=== PATIENT | female | born 1990 | race Caucasian/White ===

== ENCOUNTER 2024-06-16 09:16 | Emergency (ER) | payer OTHER, SELFPAY ==
[2024-06-16] VITALS (11 sets, daily range): BP systolic 121–171; BP diastolic 70–92; PULSE 69–128; RESP 14–17; TEMP 36.6; O2SAT 98–100
--- NOTE | ~2024-06-16 | XR_ITS ---
Clinical Indication: Chest pain, palpitations PA and lateral views of the chest: Comparison: None Findings: The lungs are clear, without evidence of focal consolidation or pleural effusion. Cardiome diastinal silhouette is within normal limits. Bones and soft tissues are unremarkable. Impression: Normal chest. Reviewed, dictated and finalized at [facility]. Impression: Normal chest.
--- NOTE | 2024-06-16 09:18 | ECG_ITS ---
Test Date: 2024-06-16 09:24:15 Measurements Intervals Archer Rate: 127 P: 63 VA: 146 QRS: 80 QRSD: 85 T: 37 QT: 297 QTc: 433 Interpretive Statements SINUS TACHYCARDIA WITH OCCASIONAL VENTRICULAR PREMATURE COMPLEXES MINIMAL Q WAVES- INFERIOR LEADS ABNORMAL ECG No previous ECG available for comparison Electronically Signed On 06-16-2024 09:45:30 CDT by Basilio Morrell D.O.
[2024-06-16] MEDS: Please add drug allergy info to patient profile. 1 EACH XX (09:32)
[2024-06-16] MEDS: SODIUM CHLORIDE 0.9% IV 1,000 ML 999 ML IV CONT (09:32)
[2024-06-16 09:38] LABS: Basophils Percent Auto 0.3 % (0.2-1.2); Eosinophils Absolute Auto 0.1 K/mm3 (0-0.3); Eosinophils Percent Auto 0.9 % (0-4.4); Hematocrit 41.7 % (37.0-47.0); Immature Granulocyte Absolute 0.02 K/mm3 (0.00-0.031); Immature Granulocyte Percent A 0.3 % (0-0.5); Lymphocytes Absolute Auto 1.35 K/mm3 (0.9-3.2); Lymphocytes Percent Auto 23.3 % (18.3-44.2); Mean Corpuscular HGB Conc 31.2 g/dl (32-36); Mean Corpuscular Hemoglobin 27.3 pg (26-34); Mean Corpuscular Volume 87.6 fl (80-100); Mean Platelet Volume 9.4 fl (7.4-10.4); Monocytes Absolute Auto 0.5 K/mm3 (0.1-0.6); Monocytes Percent Auto 8.8 % (2.6-8.5); Neutrophils Absolute Auto 3.9 K/mm3 (1.3-6.7); Neutrophils Percent Auto 66.4 % (45.5-73.1); Platelet Count Result 284 k/mm3 (150-375); Red Blood Count 4.76 M/mm3 (4.2-5.4); White Blood Count 5.8 K/mm3 (4.5-10.0)
[2024-06-16] MEDS: ASPIRIN 81 MG CHEWABLE TABLET 324 MG PO (09:39)
[2024-06-16 09:48] LABS: Alanine Aminotransferase 19 U/L (6-35); Albumin Level 4.6 g/dL (3.5-5.1); Alkaline Phosphatase 65 U/L (38-126); Anion Gap 11 mmol/L (4-12); Aspartate Amino Transferase 23 U/L (14-36); Bilirubin,Total 0.5 mg/dL (0.2-1.3); Blood Urea Nitrogen 12 mg/dL (7-17); Calcium 9.1 mg/dL (8.4-10.2); Carbon Dioxide 24 mmol/L (22-30); Chloride 105 mmol/L (98-107); Estimated CRCL calculation 125 ml/min; Estimated Glomerular Filt Rate > 60; Glucose 96 mg/dL (65-110); Lipase 98 U/L (23-300); Magnesium 2.2 mg/dL (1.6-2.3); Potassium 3.9 mmol/L (3.4-5.0); Sodium 140 mmol/L (137-145)
[2024-06-16 09:54] LABS: Prothrombin Time 13.1 Seconds (11.1-14.7)
[2024-06-16 09:55] LABS: Partial Thromboplastin Time 28.5 Seconds (22.3-36.8)
[2024-06-16 10:00] LABS: Troponin I < 0.012 ng/mL (0.000-0.034)
--- NOTE | 2024-06-16 10:14 | ED_ITS ---
HPI - Chest Pain General Chief Complaint: Chest Pain Stated Complaint: I think I'm having a heart attack. Time Seen by Provider: 06/16/24 09:21 History of Present Illness HPI narrative: Patient is a 34-year-old female who presents ER with concerns for chest discomfort and palpitations. Ongoing for 1 month. Intermittently feels her heart drop. She has tried stopping vitamins supplementation and then slowly reintroducing none. Seemed to have no effect. She feels flushed at times. No fevers or chills. She is concerned she may have a heart attack and . Chest discomfort is more the discomfort of feeling her heart is drop a beat as opposed to chest pressure or sharp stabbing pain. She does endorse some mild anxiety related to this. She has cut out caffeine without improvement. Related Data Allergies Allergy/AdvReac Type Severity Reaction Status Date / Time Penicillins AdvReac Unknown Unknown Verified 06/16/24 09:31 Review of Systems 2 Review of Systems: All systems reviewed & are unremarkable except as noted in HPI and below Constitutional: Constitutional: Reports no additional constitutional complaints Cardiovascular: Cardiovascular: Reports no additional cardiovascular complaints Respiratory: Respiratory: Reports no additional respiratory complaints Gastrointestinal: Gastrointestinal: Reports no additional gastrointestinal complaints Genitourinary: Genitourinary: Reports no additional female genitourinary complaints Musculoskeletal: Musculoskeletal: Reports no additional musculoskeletal complaints PMFSH Past Medical History Medical History (Updated 06/16/24 @ 11:28 by Trent Salas MD) Healthy female adult Surgical History Surgical History (Updated 06/16/24 @ 10:15 by Trent Salas MD) No pertinent past surgical history Exam 2 Narrative: GENERAL: Anxious-appearing, well-nourished, and in no acute distress. HEAD: Normocephalic, atraumatic. ENT: Mucous membranes moist. NECK: Supple. No carotid bruit CHEST: Clear to auscultation. No respiratory distress. HEART: Tachycardic regular. Normal peripheral pulses. ABDOMEN: Soft, nontender, nondistended. EXTREMITIES: Normal range of motion. No edema. SKIN: Warm, dry, no rash. Mild sunburn over the anterior chest and neck. NEURO: Alert and oriented x3. Course Course Emergency Course: Resting comfortably. TSH slightly low. Patient without tachycardia and is no longer anxious. Recommend follow-up with PCP for further treatment evaluation. Patient verbalized understanding. Vital Signs Vital signs: Vital Signs Temperature 97.9 F 06/16/24 09:19 Pulse Rate 128 H 06/16/24 09:19 Respiratory Rate 15 06/16/24 09:19 Blood Pressure 171/92 H 06/16/24 09:19 Pulse Oximetry 100 06/16/24 09:19 Oxygen Delivery Room Air 06/16/24 09:19 Temperature 97.9 F 06/16/24 09:19 Pulse Rate 73 06/16/24 11:17 Respiratory Rate 17 06/16/24 11:17 Blood Pressure 121/73 06/16/24 11:17 Pulse Oximetry 98 06/16/24 11:17 Oxygen Delivery Room Air 06/16/24 09:26 MDM - Chest Pain Lab Data 06/16/24 09:24 06/16/24 09:25 Labs: Lab Results 06/16/24 06/16/24 Range/Units 09:24 09:25 WBC 5.8 (4.5-10.0) K/mm3 RBC 4.76 (4.2-5.4) M/mm3 Hgb 13.0 (12.0-15.0) g/dL Hct 41.7 (37.0-47.0) % MCV 87.6 (80-100) fl MCH 27.3 (26-34) pg MCHC 31.2 L (32-36) g/dl RDW 14.0 (11.5-14.5) % Plt Count 284 (150-375) k/mm3 MPV 9.4 (7.4-10.4) fl Immature Gran % (Auto) 0.3 (0-0.5) % Neut % (Auto) 66.4 (45.5-73.1) % Lymph % (Auto) 23.3 (18.3-44.2) % Arroyo % (Auto) 8.8 H (2.6-8.5) % Eos % (Auto) 0.9 (0-4.4) % Baso % (Auto) 0.3 (0.2-1.2) % Lymph # (Auto) 1.35 (0.9-3.2) K/mm3 Arroyo # (Auto) 0.5 (0.1-0.6) K/mm3 Eos # (Auto) 0.1 (0-0.3) K/mm3 Baso # (Auto) 0.0 (0.0-0.1) K/mm3 Abs Immat Gran (auto) 0.02 (0.00-0.031) K/mm3 Absolute Neuts (auto) 3.9 (1.3-6.7) K/mm3 Absolute Nucleated RBC 0.000 (0.0-0.012) K/mm3 Nucleated RBC % 0.0 (0.0-0.2) % PT 13.1 (11.1-14.7) Seconds INR 1.0 APTT 28.5 (22.3-36.8) Seconds Sodium 140 (137-145) mmol/L Potassium 3.9 (3.4-5.0) mmol/L Chloride 105 (98-107) mmol/L Carbon Dioxide 24 (22-30) mmol/L Anion Gap 11 (4-12) mmol/L BUN 12 (7-17) mg/dL Creatinine 0.61 L (0.7-1.0) mg/dL Estim Creat Clear Calc 125 ml/min Estimated GFR > 60 (59 - ) Glucose 96 (65-110) mg/dL Calcium 9.1 (8.4-10.2) mg/dL Magnesium 2.2 (1.6-2.3) mg/dL Total Bilirubin 0.5 (0.2-1.3) mg/dL AST 23 (14-36) U/L ALT 19 (6-35) U/L Alkaline Phosphatase 65 (38-126) U/L Troponin I < 0.012 (0.000-0.034) ng/mL Total Protein 8.0 (6.3-8.2) g/dL Albumin 4.6 (3.5-5.1) g/dL Lipase 98 (23-300) U/L TSH (Reflex) 0.116 L (0.465-4.68) uIU/mL Free T4 Pending Imaging Data Radiologist's impression: ITS Impressions Chest X-Ray 06/16/24 10:02 Impression: Normal chest. ECG Data EKG #1: ECG completion date: 06/16/24 ECG completion time: 09:24 EKG Interpretation: tachycardia (127), sinus rhythm, PVCs, non-specific ST changes, normal QRS and NL axis Discharge Plan Discharge Clinical Impression: PVC (premature ventricular contraction), Low TSH level Patient Disposition: Home Condition: Stable Instructions: Hypothyroidism (ED), Premature Ventricular Contractions (ED) Additional Instructions: You may be developing hypothyroidism causing PVCs. Follow-up with your primary care doctor. Your TSH was low. Your free T4 level is pending and you can find it through the patient portal. Return the ER if you lose consciousness, you have exertional chest pain, or you have additional concerns. Practice good sleep hygiene, avoid caffeine. Patient Language: Tajik Follow-up/Referrals: Rahul,Montserrat Gaming [Primary Care Provider] - 1 Week PHYSICIAN,COMBATANT SWIMMER [Non-Staff] -
[2024-06-16 10:25] LABS: Thyroid Stimulating Hormone Reflex 0.116 uIU/mL (0.465-4.68)
[2024-06-16 11:26] LABS: Free T4 Free Thyroxine Reflex 1.01 ng/dL (0.78-2.19)
--- OUTSIDE RECORDS SUMMARY | 2024-06-16 12:40 | XMS_ITS | Clinical Summary ---
Author Organization [facility] [address] Address [address] [place] [address] Phone Care Team Providers Care Motion Picture Projectionist Name Role Phone Russel Gutierrez MD Unavailable [phone] Montserrat Kay NP Primary Care Provider [phone] Allergies No known active allergies Medications ergocalciferol (VITAMIN D) 50,000 unit capsuleIndications :Vitamin D deficiency Take 1 capsule (50,000 Units total) by mouth once a week 12 capsule 4 4 Active norethindrone (Eboni) 0.35 mg tabletIndications: Oral contraceptive pill surveillance Take 1 tablet (0.35 mg total) by mouth daily 84 tablet 4 4 Active Active Problems Problem Noted Date Diagnosed Date Class 1 obesity due to exces s calories without serious comorbidity with body mass index (BMI) of 34.0 to 34.9 in adult 04/07/2023 Assessment & Plan (04/07/2023 8:52 AM DICTAPHONE MECHANIC): Down 30 pounds from April to present Unable to lose anymore weight Healthy diet and exercise Has excess fatigue Labs ordered Discussed Phentermine if labs are all WNL Chronic seasonal allergic rhinitis due to pollen 11/18/1999 Resolved Problems Problem Noted Date Diagnosed Date Resolved Date Maternal varicella, non-immune 02/23/2020 10/26/2020 Lower abdominal pain 08/09/2017 024 Overview (08/13/2017): Sharp intermittent lower abdominal pain, somewhat colicky, no fever. Had diarrhea on day of onset, no blood in stool. Since then she has had a little constipation. Certain movements make it worse. Started at 10/10, now down to 6/10. May be somewhat exacerbated by eating. She ate at [employer] before getting ill. Also helped move a heavy bookshelf and worries about a hernia. Assessment & Plan (08/15/2017 3:09 PM CDT): She has a long history of intermittent abdominal pain, but the current episode is worse than previous episodes. We did some lab work and everything was normal except for a very mild increase in WBC. She has had some improvement in the pain with dicyclomine. On exam today, bowel sounds are normal and she is generally soft and nontender, but there is some moderate tenderness in the left lower quadrant compared to elsewhere. She is not running a fever. She is not having diarrhea or blood in the stools. If anything, she is a little constipated. She does use fiber on a regular basis to counteract her constipation. Given the history and physical findings, the most likely diagnosis is irritable bowel which is a diagnosis of exclusion. Ideally we would obtain other imaging such as CT abdomen and pelvis, but she has a young woman and we want to avoid unnecessary radiation. Since she is feeling a little better, we will continue the dicyclomine. We will repeat the CBC, and if the white blood cell count is still elevated, we will give her some empiric antibiotics for possible diverticulitis. Will set her up to see Gastroenterology. Colonoscopy may be necessary. Return here no later than two weeks, but if worse come in sooner or go to ER. Assessment & Plan (08/24/2017 6:13 PM CDT): She has a history of intermittent abdominal pain. The current symptoms developed about four or five days ago. She has had severe sharp intermittent lower abdominal pain rated at 10/10 in severity. She has had no fever. She did have some loose stools. There was no blood in the stools. She had recently eaten at [employer] with her , who did not become ill. She had no nausea or emesis. Symptoms persisted intermittently over the next several days. The symptoms might have been worse with eating, and seemed worse in certain positions such as bending over and lying on her left side. She denies having dysuria or hematuria. She thought the pain might relate to endometriosis. Apparently another physician suggested she might have this condition, but details are unclear. I reviewed Dr. Pink's most recent note and there is nothing mentioned about endometriosis. The patient did have a probable physiological ovarian cyst on pelvic ultrasound, but nothing that suggested polycystic ovary disease or endometriosis. She is about midway through her menstrual cycle, so a severe case of rafael is a consideration. She finally decided to come in and get it checked out, although today the pain has subsided to about 6/10 in severity. Exam is completely unremarkable. Bowel sounds are normal. There is no tenderness on exam. We are checking some labs. Imaging may be appropriate, but is deferred for now. In the meantime, if symptoms start to worsen again, or if she gets fever chills, nausea or vomiting, blood in the stools or urine, she should go to the emergency room. Otherwise, if improvement continues, plan follow-up here in a couple of days to review lab studies. Persistent mood disorder 11/17/2014 Assessment & Plan (12/27/2016 10:48 AM [facility]): Even though she feels she ought to be happy with her life, she has an unaccountable unhappiness. She is not suicidal at all. She would like to feel better and more cheerful. She is also discouraged about her inability to lose weight. We will try her on some Wellbutrin to see if this helps her mood and with some weight loss. We will see her back in two months. Risks of medication discussed. If she has no improvement after a week or two of 75 milligrams twice a day, she can increase it to 75 milligrams 3 times a day until follow-up. If her mood worsens instead of improving, she should stop the medication. Breast disorder 06/11/2012 04/07/2023 Intermittent abdominal pain 11/17/2006 04/07/2023 Encounters Date Type Department Care Team Description 03/29/2024 [facility]phone [facility] [address] [place] [address] Montserrat Kay NP from Last 3 Months Immunizations Immunization Administration Dates Next Due HPV, Quadrivalent 03/24/2015 Hep B, Unspecified 06/19/2007,11/18/2001, 002 Influenza, Unspecified 11/17/2022(Deferr ed: Patient Refused),11/17/2021(Deferred: Patient Refused),11/19/2018,11/17/2017,11/20/2016,12/01/2015, 11/24/2014,03/08/2014 MMR 05/31/1996,07/24/1992 PPD TEST 04/22/2016,04/03/2015,03/22/2014 ,03/08/2014 Tdap 06/23/2020,07/22/2005 Varicella 05/09/2014,03/28/2014 Surgical History Surgery Date Site/Laterality Comments SKIN SURGERY Excision skin tag right breast IMPLANT COLONOSCOPY 09/17/2017 Normal. Medical History Medical History Date Comments Obesity Persistent mood disorder 11/17/2014 Family History Medical History Relation Name Comments Coronary artery disease Maternal Great-Grandmother Breast cancer Mother Cancer, breast ; Cervical cancer Mother Cancer, cerv ical; Heart disease Mother Hypertension Mother Hypertension; Coronary artery disease Other Relation Name Status Comments Maternal Great-Grandmother Mother Alive Other Social History Tobacco Use Types Packs/Day Years Used Date Smoking Tobacco: Former Cigarettes 1 13 1 03/2006 - 01/2020 Smokeless Tobacco: Never Tobacco Cessation:Counseling Given: Not Answered Alcohol Use Standard Drinks/Week Comments No 0 (1 standard drink = 0.6 oz pur e alcohol) [facility] Utilities Answer Date Recorded In the past 12 months has e [employer], eblizz, or water [facility] threatened to shut off services in your home? No 04/07/2023 Humiliation, Afraid, Rape, and Kick questionnair e Answer Date Recorded Within the last year, have y ou been afraid of your partner or ex-partner? No 04/07/2023 Within the last year, have y ou been humiliated or emotionally abused in other ways by your partner or ex-partner? No Within the last year, have y ou been kicked, hit, slapped, or otherwise physically hurt by your partner or ex-partner? No 04/07/2023 Within the last year, have y ou been raped or forced to have any kind of sexual activity by your partner or ex-partner? No 04/07/2023 Social Connection and Isolat ion Panel [NHANES] Answer Date Recorded In a typical week, how many times do you talk on the phone with family, friends, or neighbors? More than three times a week 04/07/2023 How often do you get togethe r with friends or relatives? More than three times a week 04/07/2023 How often do you attend chur ch or samaritan services? Never 04/07/2023 Do you belong to any clubs o r organizations such as alevism groups, unions, fraternal or athletic groups, or school groups? No 04/07/2023 How often do you attend meet ings of the clubs or organizations you belong to? Never 04/07/2023 Are you , , di vorced, , never , or living with a partner? 04/07/2023 AUDIT-C Answer Date Recorded Q1: How often do you have a drink containing alcohol? Never 04/07/2023 Q2: How many drinks containi ng alcohol do you have on a typical day when you are drinking? Patient does not drink Q3: How often do you have si x or more drinks on one occasion? Never 04/07/2023 Overall Financial Resource Strain (CARDIA) Answe r Date Recorded How hard is it for you to pa y for the very basics like food, housing, medical care, and heating? Not hard at all 04/07/2023 PHQ-2 Answer Date Recorded PHQ-2 Total Score (If total score is 3 or more points, staff should administer the PHQ-9) 0 04/07/2023 [facility] of Occupat iontn Health - Occupational Stress Questionnaire Answer Date Recorded Do you feel stress - tense, restless, nervous, or anxious, or unable to sleep at night because your mind is troubled all the time - these days? Rather much 04/07/2023 Exercise Vital Sign Answer Date Recorde d On average, how many days pe r week do you engage in moderate to strenuous exercise (like a brisk walk)? 7 days 04/07/2023 On average, how many minutes do you engage in exercise at this level? 30 min 04/07/2023 Hunger Vital Sign Answer Date Recorded Within the past 12 months, y ou worried that your food would run out before you got the money to buy more. Never true 04/07/19 24 Within the past 12 months, t he food you bought just didn't last and you didn't have money to get more. Never true 04/07/2023 PRAPARE - Transportation Answer Date Re corded In the past 12 months, has l ack of transportation kept you from medical appointments or from getting medications? No 03/20 In the past 12 months, has l ack of transportation kept you from meetings, work, or from getting things needed for daily living? No 04/07/2023 Housing Stability Vital Sign Answer Placido e Recorded In the last 12 months, was t here a time when you were not able to pay the mortgage or rent on time? No 04/07/2023 In the last 12 months, how many places have you lived? 1 04/07/2023 In the last 12 months, was t here a time when you did not have a steady place to sleep or slept in a usp (including now)? No 04/07/2023 Comments No Sex and Gender Information Value Date Recorded Sex Assigned at Not on file Legal Sex Female 1:47 PM DICTAPHONE MECHANIC Gender Identity Female 06/16/2020 8:33 AM CDT Sexual Orientation Straight 06/16/2020 8: 33 AM CDT Obstetrics History Para Term AB IAB SAB Ectopic Multiple Livin g Live Births 1 1 1 0 0 0 0 0 0 1 1 Date Outcome GA Total Labor Labor/2nd/3rd Weight Sex Type Anes PTL Glo A1 A5 Name Clin 2020 Term 40w 1d 8h 06m 7h 26m/0h 36m/0h 04m 3.54 kg (7 lb 12.9 oz) F Vag-S pont Epidur al N Livin g 8 9 RICKY CHACONG Polina Genao MD Complications:None Delivery Location:[facility] ([facility]) Comments 2020 - elective pitocin i nduction. Last Filed Vital Signs Vital Sign Reading Time Taken Comments Blood Pressure 120/62 12/24/2023 8:42 AM DICTAPHONE MECHANIC Pulse 103 04/07/2023 8:06 AM DICTAPHONE MECHANIC Temperature 36.5 C (97.7 F) 04/07/2023 8:06 AM DICTAPHONE MECHANIC Respiratory Rate 16 04/07/2023 8:06 AM DICTAPHONE MECHANIC Oxygen Saturation 99% 04/07/2023 8:06 AM DICTAPHONE MECHANIC Inhaled Oxygen Concentration - - Weight 89.4 kg (197 lb) 12/24/2023 8:42 AM DICTAPHONE MECHANIC Height 163.8 cm (5' 4.5 ) 11/24/2023 2:02 PM CDT Body Mass Index 33.29 11/24/2023 2:02 PM CDT Plan of Treatment Health Maintenance Due Date Last Done Comments HPV Vaccines (2 - 3-dose series) 04/21/2015 03/24/2015 Cervical Cancer Screening 11/23/20232022, 11/22/2022, 01/26/2020 Depression Screening 04/07/2024 04/07/2023, 03/26/19 20 Influenza Vaccine (Season Ended) 2024 11/19/2018, 11/17/2017, 11/20/2016, Additional history exists Regular Well Visit/Exam 18-64 11/23/2024 11/24/2023, 04/07/2023, 11/22/2022, Additional history exists DTaP/Tdap/Td Vaccine (3 - Td or Tdap) 06/23/2030 06/23/2020, 07/22/2005 Hepatitis B Screening Completed 06/19/2007 , 11/18/2001, 09/28/2001 Varicella Vaccines Completed 05/09/2014, 03/28/2014 Hepatitis C Screening Completed 01/26/2020 Pneumococcal vaccine <65 Aged Out No longer eligible based on patient's age to complete this topic Medical Devices Implanted Type Area Partnership Manager Device Identifier Shelf Expiration Date Model / Serial / Lot Dental Implants Mouth Procedures Procedure Name Priority Date/Time Associated Diagnosis Comments HIGH RISK HPV DNA DETECTION WITH GENOTYPING Routine 11/22/2022 1:18 PM CDT Screening for malignant neoplasm of the cervix HEPATITIS C ANTIBODY Routine 01/26/2020 2:06 PM DICTAPHONE MECHANIC Less than 8 weeks gestation of Encounter for supervision of normal first in first trimester from Last 3 Months or Most Recently Relevant to Health Maintenance Results * High Risk HPV DNA Detection with Genotyping (Molecular component) (11/22/2022 1:18 PM CDT) HPV HR 16 Not Detected Not Detected YESI STEVENS Comment:Testing performed by : [facility], [address] [place]., [address] HPV HR 18 Not Detected Not Detected YESI STEVENS Comment:Testing performed by : [facility], [address] [place]., [address] HPV HR Non 16/18 Not Detected Not Detected YESI STEVENS Comment: Interpretive Data Nucleic acid amplification for detection of high-risk Human Papilloma virus (HPV) is performed by the Emily Jaleesa 6800 HPV test. This assay specifically detects HPV-16 and HPV-18 genotypes. The following HPV genotypes are detected as high-risk HPV: HPV-31, 33, 35, ,39, 45, 51, 52, 56, 58, 59, 66, and 68. This assay has been approved by the [place] Food and Drug Administration for detection of HPV in cervical specimens collected by a physician using an endocervical brush/spatula or cervical broom and placed in the ThinPrep Pap Test PreservCyt collection containers. The performance characteristics of this test have been verified by the [facility] Molecular Infectious Disease laboratory. Correlate with separately reported cytology results, as applicable. Interpretive data last revised 22 Testing performed by: [facility], [address] [place]., [address] Endocervical 11/22/2022 1:18 PM CDT 11/25/2022 12:24 PM CDT Narrative YESI STEVENS - 11/26/2022 1:41 AM CDT Clinical history and diagnosis->DX Z12.4 Testing type->Screening Last menstrual period (date if known)->11/10/22 Previous negative PAP?->Yes us Polina Pink MD LAB BODY FLUIDS AND S TOOLS ORDERABLES Final Result YESI STEVENS [id number] Department [place] [address] * Hepatitis C antibody (01/26/2020 2:06 PM DICTAPHONE MECHANIC) Hep C Ab Nonreactive Nonreactive YESI STEVENS Comment: Interpretive Data Nonreactive: Antibodies to HCV not detected. Does NOT exclude the possibility of recent exposure to HCV. Equivocal: Equivocal for HCV antibodies. Supplemental molecular testing will be automatically performed to determine infection status in accordance with current CDC screening recommendations. Reactive: Positive for HCV antibodies. This may represent current or past HCV infection. Supplemental molecular testing will be automatically performed to determine current infection status in accordance with current CDC screening recommendations. Interpretive data was last revised on 2019. Blood specimen (specimen) 01/26/2020 2:06 PM DICTAPHONE MECHANIC 01/26/2020 8:20 PM DICTAPHONE MECHANIC Polina Pink MD LAB MICROBIOLOGY - [facility] ORDERABLES Final Result YESI STEVENS [id number] Department [place] [address] from Last 3 Months or Most Recently Relevant to Health Maintenance Insurance [facility] [employer] Address: [facility] [id number] [phone] [employer] Address: [address] [place] [address] [employer] EMPL[employer] (app) PLANS Address: [address] [place] [address] [facility] [employer] Address: [address] [place] [address] Advance Directives For more information, please contact: [phone] * Full Code (Latest Code Status on File) Date Activated Date Inactivated Comments 09/15/2020 2:08 AM 09/16/2020 3:25 PM * Full Code Date Activated Date Inactivated Comments 09/14/2020 6:25 AM 09/15/2020 2:08 AM Full CPR in case of cardiopulmonary arrest * Full Code Date Activated Date Inactivated Comments 09/17/2017 10:27 AM 09/17/2017 3:01 PM Care Teams Motion Picture Projectionist Relationship Specialty Start Date End Date Montserrat Kay NP [address] [place] [address] PCP - General Family Medicine 04/07/23 Russel Gutierrez MD [address] [place] [address] Infectious Diseases 11/22/16
--- OUTSIDE RECORDS SUMMARY | 2024-06-16 12:40 | XMS_ITS | Referral Summary ---
Author Organization [facility] [address] Address [address] [place] [address] Phone Care Team Providers Care Global Vp Creative + Content Marketing Name Role Phone Russel Gutierrez MD Unavailable [phone] Montserrat Kay NP Primary Care Provider [phone] Encounters Date Type Department Care Team Description 03/29/2024 Telephone [facility] [address] [facility] [place] [address] Montserrat Kay NP from Last 3 Months Allergies No known active allergies Medications ergocalciferol [...] 04/07/2023 Assessment & Plan (04/07/2023 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 She ate at [employer] before getting ill. Also helped move a [...] the stools. She had recently eaten at [employer] with her , who did not become [...] 11/17/2014 Assessment & Plan (12/27/2016 10:48 AM [facility]): Even though she feels she [...] 06/11/2012 04/07/2023 Intermittent abdominal pain 11/17/2006 04/07/2023 Immunizations Immunization Administration Dates Next Due HPV, Quadrivalent 03/24/2015 Hep B, Unspecified 06/19/2007,11/18/2001, 002 Influenza, Unspecified 11/17/2022(Deferr ed: Patient Refused),11/17/2021(Deferred: Patient Refused),11/19/2018,11/17/2017,11/20/2016,12/01/2015, 11/24/2014,03/08/2014 MMR 05/31/1996,07/24/1992 PPD TEST 04/22/2016,04/03/2015,03/22/2014 ,03/08/2014 Tdap 06/23/2020,07/22/2005 Varicella 05/09/2014,03/28/2014 Social History Tobacco Use Types Packs/Day Years Used Date Smoking Tobacco: Former Cigarettes 1 13 1 03/2006 - 01/2020 Smokeless Tobacco: Never Tobacco Cessation:Counseling Given: Not Answered Alcohol Use Standard Drinks/Week Comments No 0 (1 standard drink = 0.6 oz pur e alcohol) [facility] [employer] Answer Date Recorded In the past 12 months has e [employer], gas, oil, or water [employer] threatened to shut off services in your [...] 04/07/2023 How often do you attend chur or confucianism services? Never 04/07/2023 Do you belong to any clubs o r organizations such as episcopal groups, unions, fraternal or athletic groups, or [...] staff should administer the PHQ-9) 0 04/07/2023 [facility] - Occupational Stress Questionnaire Answer Date [...] place to sleep or slept in a nursing home (including now)? No 04/07/2023 Comments No Sex and Gender Information Value Date Recorded Sex Assigned at Not on file Legal Sex Female 1:47 PM IS/IT PROJECT MANAGER Gender Identity Female 06/16/2020 8:33 AM CDT Sexual Orientation Straight 06/16/2020 8: 33 AM CDT Last Filed Vital Signs Vital Sign Reading Time Taken Comments Blood Pressure 120/62 12/24/2023 8:42 AM IS/IT PROJECT MANAGER Pulse 103 04/07/2023 8:06 AM IS/IT PROJECT MANAGER Temperature 36.5 C (97.7 F) 04/07/2023 8:06 AM IS/IT PROJECT MANAGER Respiratory Rate 16 04/07/2023 8:06 AM IS/IT PROJECT MANAGER Oxygen Saturation 99% 04/07/2023 8:06 AM IS/IT PROJECT MANAGER Inhaled Oxygen Concentration - - Weight 89.4 kg (197 lb) 12/24/2023 8:42 AM IS/IT PROJECT MANAGER Height 163.8 cm (5' 4.5 ) 11/24/2023 2:02 PM CDT Body Mass Index 33.29 11/24/2023 2:02 PM CDT Plan of Treatment Not on file Medical Devices Implanted Type Area Camp Dining Room Attendant Device Identifier Shelf Expiration Date Model / Serial / Lot Dental Implants Mouth Procedures Procedure Name Priority Date/Time Associated Diagnosis Comments HIGH RISK HPV DNA DETECTION WITH GENOTYPING Routine 11/22/2022 1:18 PM CDT Screening for malignant neoplasm of the cervix HEPATITIS C ANTIBODY Routine 01/26/2020 2:06 PM IS/IT PROJECT MANAGER Less than 8 weeks gestation of Encounter for supervision of normal first in first trimester from Last 3 Months or Most Recently Relevant to Health Maintenance Results * High Risk HPV DNA Detection with Genotyping (Molecular component) (11/22/2022 1:18 PM CDT) HPV HR 16 Not Detected Not Detected YESI STEVENS Comment:Testing performed by : [facility], [address] [place]., [address] HPV HR 18 Not Detected Not Detected YESI Comment:Testing performed by : [facility], [address] [place]., [address] HPV HR Non 16/18 Not Detected Not [...] this test have been verified by the [facility] Molecular Infectious Disease laboratory. Correlate with separately reported cytology results, as applicable. Interpretive data last revised 22 Testing performed by: [facility], [address] [place]., [address] Endocervical 11/22/2022 1:18 PM CDT 11/25/2022 12:24 PM CDT Narrative YESI - 11/26/2022 1:41 AM CDT Clinical history and diagnosis->DX Z12.4 Testing type->Screening Last menstrual period (date if known)->11/10/22 Previous negative PAP?->Yes Polina Pink MD LAB BODY FLUIDS AND S TOOLS ORDERABLES Final Result YESI STEVENS [address] Department [place] [address] * Hepatitis C antibody (01/26/2020 2:06 PM IS/IT PROJECT MANAGER) Hep C Ab Nonreactive Nonreactive YESI RODNEY Comment: Interpretive Data Nonreactive: Antibodies to HCV [...] 2019. Blood specimen (specimen) 01/26/2020 2:06 PM IS/IT PROJECT MANAGER 01/26/2020 8:20 PM IS/IT PROJECT MANAGER Polina Pink MD LAB MICROBIOLOGY - [facility] ORDERABLES Final Result Performing Organization Address [facility] Co de Phone Number YESI STEVENS [phone] Department [place] [address] from Last 3 Months or Most Recently Relevant to Health Maintenance Insurance CIG CIGNA CIGNA [facility] Advance Directives For more information, please contact: [phone] * Full Code (Latest Code Status on File) Date Activated Date Inactivated Comments 09/15/2020 2:08 AM 09/16/2020 3:25 PM * Full Code Date Activated Date Inactivated Comments 09/14/2020 6:25 AM 09/15/2020 2:08 AM Full CPR in case of cardiopulmonary arrest * Full Code Date Activated Date Inactivated Comments 09/17/2017 10:27 AM 09/17/2017 3:01 PM Care Teams Global Vp Creative + Content Marketing Relationship Specialty Start Date End Date Montserrat Kay NP [address] [place] [address] PCP - General Family Medicine 04/07/23 Russel Gutierrez MD [address] [place] [address] Infectious Diseases 11/22/16
--- OUTSIDE RECORDS SUMMARY | 2024-06-16 12:41 | XMS_ITS | Encounter Summary ---
Author Organization [facility] Address [address] [place] [address] Phone Care Team Providers Care Reference And Instruction Librarian Name Role Phone Russel Gutierrez MD Primary Care Provider [phone] Russel Gutierrez MD Unavailable [phone] Víctor Ireland MD Primary Care Provider [phone] Montserrat Kay NP Primary Care Provider [phone] Encounter Details Date Type Department Care Team (Late st Contact Info) Description 06/26/2017 Orders Only [facility] ProviderSimon MD [address] [place] [id number] Social History Tobacco Use Types Packs/Day Years Used Date Smoking Tobacco: Every Day Cigarettes Smokeless Tobacco: Never Alcohol Use Standard Drinks/Week Comments No 0 (1 standard drink = 0.6 oz pur e alcohol) Comments No Sex and Gender Information Value Date Recorded Sex Assigned at Not on file Legal Sex Female 1:47 PM R D ENGINEER Gender Identity Female 06/16/2020 8:33 AM CDT Sexual Orientation Straight 06/16/2020 8: 33 AM CDT 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 us Historical Provider LAB BLOOD ORDERABLES Ivory l Result documented in this encounter Visit Diagnoses Not on filedocumented in this encounter Care Teams Reference And Instruction Librarian Relationship Specialty Start Date End Date Russel Gutierrez MD [address] [place] [address] PCP - General Infectious Diseases 11/22/16 03/25/19 Víctor Ireland MD [address] [place] [address] PCP - General Family Medicine 03/26/19 04/06/23 Montserrat Kay NP [address] [place] [address] PCP - General Family Medicine 04/07/23 Russel Gutierrez MD [address] [place] [address] Infectious Diseases 11/22/16 documented as of this encounter
== END 2024-06-16 11:39 | disposition home or self-care (01) ==
PROVIDERS: Emergency Provider Emergency Medicine; PCP Nurse Practitioner
DX: I49.3 Ventricular premature depolarization (principal); R94.6 Abnormal results of thyroid function studies
CPT/HCPCS: 36415; 71046; 80053; 83690; 83735; 84439; 84443; 84480; 84484; 85025; 85610; 85730; 93005; 96360; 99284; A9270; J7030